=== PATIENT | female | born 1995 | race African-American/Black ===

== ENCOUNTER 2022-06-25 18:01 | Emergency (ER) | payer MEDICAID, OTHER ==
[~2022-06-25] VITALS: Ht 157.5 cm; Wt 91.0 kg
[2022-06-25 18:02] VITALS: BP 119/63
== END 2022-06-25 19:30 | disposition left against medical advice (07) ==
LOC: ER 18:01
DX: Z53.21 Procedure and treatment not carried out due to patient leaving prior to being seen by health care provider (principal)